=== PATIENT | female | born 1950 | race Caucasian/White ===

== ENCOUNTER → 2017-05-29 | Outpatient (CLI) | payer MEDICARE, OTHER | END | disposition home or self-care (01) | LOC: MERGE 08:59 → CFH 08:59 | PROVIDERS: ATTEND Family Medicine | DX: Z12.31 Encounter for screening mammogram for malignant neoplasm of breast (principal); Z13.820 Encounter for screening for osteoporosis; M85.88 Other specified disorders of bone density and structure, other site | CPT/HCPCS: 77080; 77067 ==

== ENCOUNTER → 2017-07-23 | Outpatient (CLI) | payer MEDICARE, OTHER | END | disposition home or self-care (01) | LOC: PETCFH 10:39 | PROVIDERS: ATTEND Surgery | DX: E21.0 Primary hyperparathyroidism (principal) | CPT/HCPCS: 78070; A9500 ==

== ENCOUNTER → 2017-08-17 | Outpatient (CLI) | payer MEDICARE, OTHER ==
[~2017-08-17] MED LIST: OMNIPAQUE 350 MG/ML, 100ML BOTTLE ONE
== END | disposition home or self-care (01) ==
LOC: RAD 10:34
PROVIDERS: ATTEND Surgery
DX: E21.0 Primary hyperparathyroidism (principal); Z87.442 Personal history of urinary calculi
CPT/HCPCS: 70498; Q9967

== ENCOUNTER 2017-08-31 06:25 | Day surgery (SDC) | payer MEDICARE, OTHER ==
[2017-08-28 09:18] VITALS: BP 147/80
[~2017-08-31] VITALS: Ht 172.7 cm; Wt 75.0 kg
[~2017-08-31 06:25] MED LIST changes: +ASPI-496 PO; +CHOL200074 PO; -OMNIPAQUE 350 MG/ML, 100ML BOTTLE ONE
[2017-08-31] MEDS ORDERED: LACTATED RINGERS 1,000 ML IV SCH (06:59)
[2017-08-31] MEDS ORDERED: LIDOCAINE-MPF 1%, 2ML INFIL ONE (07:00)
[2017-08-31] MEDS ORDERED: ACETAMINOPHEN 500 MG TABLET PO ONE (07:30)
[2017-08-31] MEDS ORDERED: FAMOTIDINE 20 MG TABLET PO ONE (07:30)
[2017-08-31] MEDS ORDERED: OXYcodone IR 5MG TABLET PO ONE (07:30)
[2017-08-31] MEDS ORDERED: ONDANSETRON ODT 8 MG PO ONE (07:30)
[2017-08-31] MEDS ORDERED: GABAPENTIN 300 MG CAPSULE PO ONE (07:30)
[2017-08-31] MEDS ORDERED: FENTANYL PF 100 MCG/2ML ONE ×2 (08:13→10:20)
[2017-08-31] MEDS ORDERED: MIDAZOLAM 1 MG/ML, 2ML ONE (08:13)
[2017-08-31] MEDS ORDERED: ROCURONIUM 10 MG/ML,10ML ONE (08:17)
[2017-08-31] MEDS ORDERED: CEFAZOLIN 1,000 MG ONE (08:17)
[2017-08-31] MEDS ORDERED: SUCCINYLCHOLINE 20 MG/ML, 10ML ONE (08:17)
[2017-08-31] MEDS ORDERED: DEXAMETHASONE 4 MG/ML, 1ML ONE (08:17)
[2017-08-31] MEDS ORDERED: PROPOFOL 10 MG/ML, 20ML ONE (08:17)
[2017-08-31] MEDS ORDERED: HYDROcodone/APAP 7.5-325MG/15ML UDC PO PRN (09:00)
[2017-08-31] MEDS ORDERED: morphine SULFATE 10 MG/ML, 1ML IV PRN (09:00)
[2017-08-31] MEDS ORDERED: PROMETHAZINE 25 MG/ML, 1ML IV PRN (09:00)
[2017-08-31] MEDS ORDERED: MIDAZOLAM 1 MG/ML, 2ML IV PRN (09:00)
[2017-08-31] MEDS ORDERED: ONDANSETRON 2MG/ML, 2ML IVPush PRN ×2 (09:00→11:30)
[2017-08-31] MEDS ORDERED: MEPERIDINE/PF 25MG/0.5ML IVPush PRN (09:00)
[2017-08-31] MEDS ORDERED: OXYcodone 5 MG/5 ML ORAL.SOL UDC PO PRN (09:00)
[2017-08-31] MEDS ORDERED: hydrALAzine 20 MG/ML, 1ML IV PRN (09:00)
[2017-08-31] MEDS ORDERED: EPHEDRINE 50 MG/ML, 1ML IVPush PRN (09:00)
[2017-08-31] MEDS ORDERED: PROMETHAZINE 12.5 MG SUPP PR PRN (09:00)
[2017-08-31] MEDS ORDERED: LABETALOL 5MG/ML, 20ML IV PRN (09:00)
[2017-08-31] MEDS ORDERED: ALBUTEROL SULFATE 2.5 MG/3 ML NPPB PRN (09:00)
[2017-08-31] MEDS ORDERED: METOPROLOL 1 MG/ML, 5ML IV PRN (09:00)
[2017-08-31] MEDS ORDERED: FENTANYL PF 100 MCG/2ML IV PRN (09:00)
[2017-08-31] MEDS ORDERED: DIAZEPAM 5 MG/ML, 2ML IVPush PRN (09:00)
[2017-08-31 10:02] LABS: 10MIN %DROP IOPTH 6 %; 5MIN %DROP IOPTH 12 %; IOPTH BASELINE 125 pg/mL; SAMPLE 5 %DROP IOPTH 80 %
[2017-08-31 10:03] LABS: SAMPLE 6 %DROP IOPTH 87 %
[2017-08-31] MEDS ORDERED: OXYcodone 5 MG/5 ML ORAL.SOL UDC ONE (10:20)
[2017-08-31 11:15] VITALS: BP 130/75
[2017-08-31] MEDS ORDERED: MORPHINE SULFATE 4 MG/ML, 1ML IVPush PRN (11:30)
[2017-08-31] MEDS ORDERED: HYDROcodone/APAP 5/325 TABLET PO PRN (11:30)
[2017-08-31] MEDS ORDERED: ONDANSETRON ODT 4 MG PO PRN (11:30)
[2017-08-31 12:19] LABS: ALBUMIN 3.7 g/dL (3.4-5.0); CALCIUM 8.9 mg/dL (8.5-10.1)
[2017-08-31 13:54] VITALS: BP 122/76
[2017-08-31 18:56] LABS: ALBUMIN 3.5 g/dL (3.4-5.0); CALCIUM 8.6 mg/dL (8.5-10.1)
[2017-08-31] MEDS ORDERED: CALC300T4 PO (19:38)
[2017-09-01] MEDS ORDERED: ASPIRIN 81 MG TABLET EC PO SCH (06:00)
[2017-09-01] MEDS ORDERED: CHOLECALCIFEROL 1,000 UNIT TABLET PO SCH (09:00)
== END 2017-08-31 20:25 | disposition home or self-care (01) ==
LOC: OUT 06:25 → 4NOR 11:13 → OUT 20:25
PROVIDERS: ATTEND Surgery
DX: E21.0 Primary hyperparathyroidism (principal); E21.3 Hyperparathyroidism, unspecified; Z90.49 Acquired absence of other specified parts of digestive tract; Z98.890 Other specified postprocedural states; Z90.710 Acquired absence of both cervix and uterus; Z79.82 Long term (current) use of aspirin
CPT/HCPCS: 36415; 60500; 82040; 82310; 83970; 88305; 88331; C1760; J0330; J0690; J1100; J2250; J2704; J3490; J7120; Q0162; J3010

== ENCOUNTER → 2018-06-14 | Outpatient (CLI) | payer MEDICARE, OTHER ==
[~2018-06-14] MED LIST changes: +CALC300T4 PO; +CEFD300C37 PO
== END | disposition home or self-care (01) ==
LOC: CFH 12:29
PROVIDERS: ATTEND Internal Medicine Cardiovascular Disease
DX: Z12.31 Encounter for screening mammogram for malignant neoplasm of breast (principal); I08.0 Rheumatic disorders of both mitral and aortic valves; Z95.2 Presence of prosthetic heart valve
CPT/HCPCS: 93306; 77067